=== PATIENT | male | born 1995 | race Caucasian/White ===

== ENCOUNTER 2017-02-23 21:54 | Emergency (ER) | payer SELFPAY | END 2017-02-24 00:30 | disposition left against medical advice (07) | LOC: M ED 21:54 | DX: Z53.29 Procedure and treatment not carried out because of patient's decision for other reasons (principal) ==

== ENCOUNTER 2019-03-06 15:15 | Emergency (ER) | payer MEDICAID, SELFPAY ==
[~2019-03-06] VITALS: Ht 180.3 cm; Wt 85.7 kg
[~2019-03-06 15:15] MED LIST: PAXI20TA29 PO
--- NOTE | 2019-03-06 16:59 | REP ---
SCROTAL ULTRASOUND: Real-time sonographic evaluation of the scrotum and contents performed. Left testicle is normal in size and echotexture, 4.4 x 2.5 x 3.3 cm. Epididymis is normal bilaterally. Right testicle is enlarged with diffuse heterogenous internal echotexture and a few tiny cystic areas. There does appear to be a thin rim of normal appearing tissue. Total dimensions 5.8 x 4.3 x 5.4 cm. There is blood flow seen in each testicle with duplex Doppler evaluation, with no torsion. There is no hyperemia. There a small right hydrocele. IMPRESSION: Enlarged heterogeneous right testicle. There appears to be a thin rim of normal appearing tissue. Normal internal blood flow is seen. There is no torsion. Differential diagnosis would include tumor. Orchitis is a possibility although the testicle is not particularly hyperemic and usually the epididymis would be inflamed. Differential diagnosis would also include hematoma, but there is no history of trauma. Electronically Signed by Micha Wilder MD 03/07/2019 12:39 P
[2019-03-06 17:31] LABS: CHLAMYDIA DNA AMPLIFICATION NEGATIVE (NEGATIVE); GC DNA AMPLIFICATION NEGATIVE (NEGATIVE)
[2019-03-06] MEDS ORDERED: NORCO, ANEXSIA 5/325MG TABLET (HYDROcodone/ACETAMINOPHEN) PO ONE (18:00)
[2019-03-06] MEDS ORDERED: OXYCODONE/APAP 5MG/325MG(BULK FOR ED) 1 TABLET PO ONE (18:15)
[2019-03-06 18:26] VITALS: BP 111/55
--- NOTE | 2019-03-10 15:26 | ED PDOC ---
Post-Departure Follow-Up dr teran faxed formal report of scrotal us for fu Constantino Carvalho MD Mar 10, 2019 15:26
== END 2019-03-06 18:34 | disposition home or self-care (01) ==
LOC: M ED 15:15
DX: N50.89 Other specified disorders of the male genital organs (principal); F33.9 Major depressive disorder, recurrent, unspecified; F17.210 Nicotine dependence, cigarettes, uncomplicated

== ENCOUNTER → 2019-03-21 | Outpatient (CLI) | payer MEDICAID, OTHER ==
[2019-03-21 17:07] LABS: HEMATOCRIT 48.4 % (42.0-52.0); HEMOGLOBIN 16.2 g/dl (13.5-17.5); MEAN CORPUSCULAR HEMOGLOBIN 31.3 pg (27.0-33.0); MEAN CORPUSCULAR HGB CONC 33.5 g/dl (32.0-36.5); MEAN CORPUSCULAR VOLUME 93.4 fl (80.0-96.0); PLATELET COUNT, AUTOMATED 292 10^3/uL (150-450); RED BLOOD COUNT 5.18 10^6/uL (4.30-6.10); WHITE BLOOD COUNT 5.6 10^3/uL (4.0-10.0)
[2019-03-21 17:29] LABS: BLOOD UREA NITROGEN 13 MG/DL (7-18); CALCIUM LEVEL 9.7 MG/DL (8.5-10.1); CARBON DIOXIDE LEVEL 33 MEQ/L (21-32); CHLORIDE LEVEL 105 MEQ/L (98-107); GLOMERULAR FILTRATION RATE > 60.0 (>60); GLUCOSE, FASTING 82 MG/DL (70-100); POTASSIUM SERUM 4.4 MEQ/L (3.5-5.1); SODIUM LEVEL 142 MEQ/L (136-145)
[2019-03-21 18:01] LABS: INR 1.11
[2019-03-21 18:02] LABS: PARTIAL THROMBOPLASTIN TIME 30.2 SECONDS (25.0-38.4)
== END ==
LOC: M LAB 16:14
PROVIDERS: ATTEND Urology
DX: Z01.818 Encounter for other preprocedural examination (principal); N50.9 Disorder of male genital organs, unspecified

== ENCOUNTER 2019-03-24 14:12 | Day surgery (SDC) | payer MEDICAID, OTHER ==
[~2019-03-24] VITALS: Ht 180.3 cm; Wt 84.8 kg
[~2019-03-24 14:12] MED LIST changes: +BUPIVACAINE HCL 0.25% 30 ML VIAL As Ordered ONE; +LIDOCAINE 1% SDV INJ 30 ML VIAL As Ordered ONE
[2019-03-24] MEDS ORDERED: ceFAZolin 2 GM/D5W 50 ML IV BAG (J0690 PER 500MG) As Ordered ONE (14:55)
[2019-03-24] MEDS ORDERED: ceFAZolin SOD 2 GM in IV 1 EA IV ONE (16:00)
[2019-03-24] MEDS ORDERED: fentaNYL 250 MCG/5 ML INJECTION (J3010) As Ordered ONE (18:46)
[2019-03-24] MEDS ORDERED: MIDAZOLAM INJ 2 MG/2 ML VIAL (J2250) As Ordered ONE (18:46)
[2019-03-24] MEDS ORDERED: propofoL 200 MG/20 ML VIAL As Ordered ONE (18:47)
[2019-03-24] MEDS ORDERED: ROCURONIUM BROMIDE 50 MG/5 ML VIAL As Ordered ONE (18:47)
[2019-03-24] MEDS ORDERED: ONDANSETRON 4MG/2ML VIAL (J2405) As Ordered ONE (18:47)
[2019-03-24] MEDS ORDERED: SUGAMMADEX SODIUM 500 MG/5 ML VIAL (BRIDION) As Ordered ONE (18:47)
[2019-03-24] MEDS ORDERED: dexameTHASONE 4 MG/ML 1ML VIAL (J1100) As Ordered ONE (18:47)
[2019-03-24] MEDS ORDERED: LIDOCAINE 2% INJ 100 MG/5 ML SDV (FOR ANES.) As Ordered ONE (18:47)
--- NOTE | 2019-03-24 20:36 | ROOPDOC ---
[facility] Report Of Operation Report of Operation DATE OF PROCEDURE: 03/24/19 PREPROCEDURE DIAGNOSIS: Right testicular mass. POSTPROCEDURE DIAGNOSIS: Right testicular mass. PROCEDURE: Right radical orchiectomy. SURGEON: Anastacia Mcduffie MD TRACER POWDER BLENDER: None. ANESTHESIA: General. OPERATIVE INDICATIONS: This is a 23 year-old male who was recently found to have an infiltrative mass in his right testicle, concerning for malignancy. It was recommended that he be brought to the operating room today for the above listed procedure. DESCRIPTION OF PROCEDURE: The patient was brought to the operating room where general anesthesia was induced. Prophylactic antibiotics were infused. He was then placed in the supine position and prepped and draped in the usual sterile fashion. At this point, a 4 cm incision was made in the skin overlying the right external ring. I then dissected down through the subcutaneous tissue. The external oblique fascia was then opened. The spermatic cord was identified and isolated. A Greg drain was wrapped around the cord. We then delivered the testicle into the wound. We then dissected off the Gubernacular fibers between the testicle and the skin until the testicle was completely free of the scrotal skin. We then dissected the spermatic cord proximally until we got to the level of the internal ring. At this point, a right angle clamp was placed on the cord. Just distal to the clamp, the cord was in two different packets and then two additional clamps were placed around these packets. The spermatic cord was then transected using scissors and then the right testicle and spermatic cord were delivered off the table to be sent for pathologic analysis. At this point, the two separate packets were ligated with #0 silk sutures and then they were cut long. Just proximal to the most proximal clamp, the s permatic cord was suture ligated with #0 silk suture. At this point, we checked hemostasis and hemostasis appeared excellent. We then closed the external oblique fascia with a running #2-0 Vicryl suture. The wound was then thoroughly irrigated and then the subcutaneous tissue was reapproximated with interrupted #2-0 chromic suture. The skin was then closed with a running #4-0 Monocryl subcuticular stitch. Local anesthetic was applied. Dermabond was applied. This marked conclusion of the procedure. The patient was then awakened from anesthesia, transported to the recovery room in stable condition. ESTIMATED BLOOD LOSS: 10mL. COMPLICATIONS: None. SPECIMENS: Right testicle and spermatic cord. PLAN: The patient will followup in the clinic in a week or two to discuss pathology results. ANASTACIA MCDUFFIE MD Mar 24, 2019 20:36
[2019-03-24] MEDS ORDERED: METOCLOPRAMIDE INJ 10MG/2ML VIAL (J2765) IV PRN (21:00)
[2019-03-24] MEDS ORDERED: fentaNYL 100 MCG/2 ML INJECTION (J3010) IV PRN (21:00)
[2019-03-24] MEDS ORDERED: LR 1,000 ML IV SCH (21:00)
[2019-03-24] MEDS ORDERED: ONDANSETRON 4MG/2ML VIAL (J2405) IV PRN (21:00)
[2019-03-24] MEDS ORDERED: PERCOCET 5MG/325MG TAB PO PRN ×2 (21:00)
[2019-03-24 22:50] VITALS: BP 128/71
== END 2019-03-24 22:50 | disposition home or self-care (01) ==
LOC: M SDC 14:12
PROVIDERS: ATTEND Urology
DX: C62.91 Malignant neoplasm of right testis, unspecified whether descended or undescended (principal); F32.9 Major depressive disorder, single episode, unspecified; F17.218 Nicotine dependence, cigarettes, with other nicotine-induced disorders
CPT/HCPCS: 54530; 88309; J0690; J1100; J2250; J2405; J3010

== ENCOUNTER → 2019-04-18 | Outpatient (CLI) | payer OTHER ==
[~2019-04-18] MED LIST changes: -BUPIVACAINE HCL 0.25% 30 ML VIAL As Ordered ONE; +ISOVUE-370 76% 100ML VIAL (Q9967) As Ordered ONE; -LIDOCAINE 1% SDV INJ 30 ML VIAL As Ordered ONE
--- NOTE | 2019-04-18 14:27 | REP ---
PA and lateral chest: Comparison is 09/12/2007. The lung medina are clear. The cardiac size is normal. The henry, mediastinum, and skeletal structures are unremarkable. Impression: Negative PA and lateral chest. Electronically Signed by Micha Ayala MD 04/18/2019 02:19 P
--- NOTE | 2019-04-18 14:34 | REP ---
CT ABDOMEN AND PELVIS WITH IV CONTRAST: HISTORY: Testicular cancer. Comparison CT study November 26, 2015. CT CONTRAST DOSE: 100 mL of intravenous Isovue [address] FINDINGS: Preliminary digital an employee sponsor or advocate and radiograph is unremarkable. The lung bases are clear on axial CT images. The liver is normal in size homogeneous in texture. No abnormality is noted in the spleen. No adrenal lesion is seen on either side. Kidneys enhance symmetrically are morphologically intact. No abnormality is noted in the gallbladder or pancreas. No upper abdominal adenopathy is seen. No periaortic adenopathy is observed. A single stable left periaortic lymph node is seen short-axis dimension just less than 5 mm. No iliac adenopathy is appreciated. No mesenteric mimi disease is appreciated. The appendix is not identified but there is no CT evidence of appendicitis. No abdominal wall defect is seen. Small and large bowel loops are unremarkable. Seminal vesicles and prostate are intact. There is some linear fibrosis along the distribution of the right spermatic cord suggesting previous right orchiectomy. Normal-appearing inguinal lymph nodes are noted bilaterally. These are unchanged from the November 25, 2015 study. No bony abnormality is appreciated. IMPRESSION: No active intra-abdominal disease. Electronically Signed by Cesar Abebe MD 04/18/2019 03:53 P
== END ==
LOC: M RAD 10:08
PROVIDERS: ATTEND Urology
DX: C62.90 Malignant neoplasm of unspecified testis, unspecified whether descended or undescended (principal)
CPT/HCPCS: 71046; 74177; Q9967

== ENCOUNTER → 2019-04-23 | Outpatient (CLI) | payer OTHER ==
[~2019-04-23] MED LIST changes: -ISOVUE-370 76% 100ML VIAL (Q9967) As Ordered ONE
== END ==
LOC: M LAB 12:04
PROVIDERS: ATTEND Urology
DX: C62.90 Malignant neoplasm of unspecified testis, unspecified whether descended or undescended (principal)

== ENCOUNTER → 2019-08-05 | Outpatient (CLI) | payer OTHER ==
[~2019-08-05] MED LIST changes: +ISOVUE-370 76% 100ML VIAL As Ordered ONE
--- NOTE | 2019-08-05 09:21 | REP ---
Clinical: History of testicular cancer. Technique: Axial contrast enhanced images from the lung bases to the pubic symphysis using 100 ml Isovue 370 intravenous contrast material with coronal and sagittal re-formations. Delayed images of the abdomen obtained. Findings: Lung bases are clear. Visualized heart and pericardium normal. Liver, spleen, pancreas, gallbladder, bilateral adrenal glands and kidneys are normal. The enteric system is without obstruction or acute inflammatory process. Scattered colonic diverticula noted without acute diverticulitis. Pelvis demonstrates normal bladder and age appropriate prostate/seminal vesicles. No ascites. No intraperitoneal or retroperitoneal adenopathy. No free air. Abdominal aorta and vasculature appear normal. Musculoskeletal structures are intact. Impression: No acute abdominopelvic pathology appreciated. No evidence for metastatic disease. Electronically Signed by Rex Almonte MD 08/05/2019 09:13 A
== END ==
LOC: M RAD 08:34
PROVIDERS: ATTEND Urology
DX: C62.90 Malignant neoplasm of unspecified testis, unspecified whether descended or undescended (principal)
CPT/HCPCS: 74177; Q9967

== ENCOUNTER 2020-01-23 11:09 | Emergency (ER) | payer OTHER ==
[~2020-01-23] VITALS: Ht 180.3 cm; Wt 80.1 kg
[2020-01-23 11:09] VITALS: BP 116/68
[~2020-01-23 11:09] MED LIST changes: -ISOVUE-370 76% 100ML VIAL As Ordered ONE
[2020-01-23] MEDS ORDERED: KETOROLAC TROMETHAMINE 10 MG TAB PO ONE (12:00)
[2020-01-23] MEDS ORDERED: AUGM875T28 PO (12:02)
[2020-01-23] MEDS ORDERED: LIDVISCBTL SSP (12:02)
[2020-01-23] MEDS ORDERED: KETO10TAB PO (12:02)
== END 2020-01-23 12:08 | disposition home or self-care (01) ==
LOC: M ED 11:09
DX: K04.7 Periapical abscess without sinus (principal); F33.9 Major depressive disorder, recurrent, unspecified; F12.20 Cannabis dependence, uncomplicated

== ENCOUNTER → 2020-02-02 | Outpatient (CLI) | payer OTHER ==
[~2020-02-02] MED LIST changes: +AUGM875T28 PO; +ISOVUE-370 76% 100ML VIAL As Ordered ONE; +KETO10TAB PO; +LIDVISCBTL SSP
--- NOTE | 2020-02-02 15:08 | REP ---
INDICATION: TESTICULAR CA. COMPARISON: 08/05/2019 TECHNIQUE: Axial contrast-enhanced images from the lung bases to the pubic symphysis using 100 cc Isovue 370 intravenous contrast material. Delayed images of the abdomen along with coronal and sagittal reformations obtained. This CT examination was performed using the following dose reduction techniques: Automated exposure control, adjustment of mA and/or kv according to the patient's size, and the use of iterative reconstruction technique. FINDINGS: Lung bases are clear. Visualized heart and pericardium normal. Liver, spleen, pancreas, gallbladder, bilateral adrenal glands and kidneys are normal. The enteric system including stomach, small, and large bowel appears normal. No evidence for obstruction or acute inflammatory process. Normal terminal ileum and appendix are identified in the right lower quadrant. Pelvis demonstrates normal bladder and age-appropriate prostate/seminal vesicles. Small nonspecific pelvic sidewall lymph nodes measuring up to 8-9 mm remains stable. No ascites. No free air. No intraperitoneal or retroperitoneal adenopathy. Abdominal aorta and vasculature appear normal. Musculoskeletal structures are intact and without acute osseous abnormality. IMPRESSION: No acute abdominopelvic pathology appreciated. No evidence for metastatic disease. <Electronically signed by Rex Almonte > 02/02/20 [id number]
== END ==
LOC: M RAD 14:15
PROVIDERS: ATTEND Urology
DX: C62.90 Malignant neoplasm of unspecified testis, unspecified whether descended or undescended (principal)
CPT/HCPCS: 74177; Q9967

== ENCOUNTER 2020-07-20 10:04 | Emergency (ER) | payer OTHER ==
[~2020-07-20] VITALS: Ht 180.3 cm; Wt 72.2 kg
[~2020-07-20 10:04] MED LIST changes: -ISOVUE-370 76% 100ML VIAL As Ordered ONE
[2020-07-20 10:05] VITALS: BP 123/65
== END 2020-07-20 12:40 | disposition left against medical advice (07) ==
LOC: M ED 10:04
DX: Z53.21 Procedure and treatment not carried out due to patient leaving prior to being seen by health care provider (principal)

== ENCOUNTER 2021-06-10 14:02 | Emergency (ER) | payer OTHER ==
[~2021-06-10] VITALS: Ht 180.3 cm; Wt 72.3 kg
[2021-06-10] MEDS ORDERED: IPRATROPIUM 0.5MG/ALBUTEROL 2.5MG INH SOL UD 3ML (DUONEB) NEB ONE (17:30)
[2021-06-10 17:58] LABS: BASO % 0.3 % (0.0-1.0); EOS # 0.1 10^3/uL (0.0-0.5); EOS % 1.1 % (0.0-3.0); HEMATOCRIT 44.3 % (42.0-52.0); HEMOGLOBIN 15.1 g/dl (13.5-17.5); LYMPH # 1.8 10^3/uL (1.5-5.0); LYMPH % 27.2 % (24.0-44.0); MEAN CORPUSCULAR HGB CONC 34.1 g/dl (32.0-36.5); MONO # 0.6 10^3/uL (0.0-0.8); MONO % 8.6 % (2.0-8.0); NEUTROPHILS # 4.1 10^3/uL (1.5-8.5); NEUTROPHILS % 62.8 % (36.0-66.0); PLATELET COUNT, AUTOMATED 215 10^3/uL (150-450); RED BLOOD COUNT 4.87 10^6/uL (4.30-6.10); WHITE BLOOD COUNT 6.5 10^3/uL (4.0-10.0)
[2021-06-10 18:16] LABS: BLOOD UREA NITROGEN 12 MG/DL (7-18); CALCIUM LEVEL 9.3 MG/DL (8.5-10.1); CARBON DIOXIDE LEVEL 30 MEQ/L (21-32); CHLORIDE LEVEL 105 MEQ/L (98-107); GLOMERULAR FILTRATION RATE > 60.0 (>60); GLUCOSE, FASTING 73 MG/DL (70-100); SODIUM LEVEL 140 MEQ/L (136-145)
[2021-06-10] MEDS ORDERED: PROAAER10 INH (19:59)
[2021-06-10 20:09] VITALS: BP 117/68
== END 2021-06-10 20:10 | disposition home or self-care (01) ==
LOC: M ED 14:02
DX: R06.02 Shortness of breath (principal); R07.89 Other chest pain; Z91.040 Latex allergy status; F17.210 Nicotine dependence, cigarettes, uncomplicated; F12.20 Cannabis dependence, uncomplicated

== ENCOUNTER 2022-04-19 00:19 | Emergency (ER) | payer OTHER ==
[~2022-04-19] VITALS: Ht 180.3 cm; Wt 82.3 kg
[~2022-04-19 00:19] MED LIST changes: -PAXI20TA29 PO; +PAXI20TA30 PO; +PROAAER10 INH
[2022-04-19 00:20] VITALS: BP 127/78
[2022-04-19] MEDS ORDERED: IBUPROFEN 800 MG TAB PO ONE (01:45)
[2022-04-19] MEDS ORDERED: AUGMENTIN 875 MG TAB PO ONE (01:45)
[2022-04-19] MEDS ORDERED: IBUP-1022 PO (01:52)
[2022-04-19] MEDS ORDERED: AMOX875T2 PO (01:52)
== END 2022-04-19 02:22 | disposition home or self-care (01) ==
LOC: M ED 00:19
DX: K04.7 Periapical abscess without sinus (principal); Z91.040 Latex allergy status

== ENCOUNTER 2022-09-08 16:19 | Emergency (ER) | payer OTHER ==
[~2022-09-08] VITALS: Ht 180.3 cm; Wt 75.6 kg
[~2022-09-08 16:19] MED LIST changes: +AMOX875T2 PO; +IBUP-1022 PO
[2022-09-08 16:21] VITALS: BP 122/61; TEMP 99; O2SAT 96
== END 2022-09-08 19:00 | disposition left against medical advice (07) ==
LOC: M ED 16:19
DX: R21 Rash and other nonspecific skin eruption (principal); Z53.21 Procedure and treatment not carried out due to patient leaving prior to being seen by health care provider

== ENCOUNTER 2023-12-26 10:43 | Emergency (ER) | payer MEDICAID, OTHER, SELFPAY ==
[~2023-12-26] VITALS: Ht 180.3 cm; Wt 84.0 kg
[2023-12-26 13:22] VITALS: BP 118/70; TEMP 98.4; O2SAT 98
== END 2023-12-26 13:58 | disposition home or self-care (01) ==
LOC: M ED 10:43
DX: S93.401A Sprain of unspecified ligament of right ankle, initial encounter (principal); S93.601A Unspecified sprain of right foot, initial encounter; X50.1XXA Overexertion from prolonged static or awkward postures, initial encounter; Y92.9 Unspecified place or not applicable; Y93.9 Activity, unspecified; Y99.0 Civilian activity done for income or pay; J45.909 Unspecified asthma, uncomplicated; F41.9 Anxiety disorder, unspecified; F32.A Depression, unspecified; Z91.040 Latex allergy status